=== PATIENT | male | born 1965 | race Two or more races ===

== ENCOUNTER 2023-01-31 18:00 | Emergency (ER) | payer SELFPAY ==
[~2023-01-31] VITALS: Ht 185.4 cm; Wt 94.2 kg
[2023-02-01 00:37] VITALS: BP 121/98
== END 2023-02-01 00:42 | disposition home or self-care (01) ==
LOC: ER 18:00
DX: S00.03XA Contusion of scalp, initial encounter (principal); M54.2 Cervicalgia; X58.XXXA Exposure to other specified factors, initial encounter; Y93.89 Activity, other specified; Y92.89 Other specified places as the place of occurrence of the external cause; Y99.8 Other external cause status
CPT/HCPCS: 70450; 72125